=== PATIENT | female | born 1990 | race Caucasian/White ===

== ENCOUNTER 2018-09-29 16:01 | Emergency (ER) | payer MEDICAID ==
[~2018-09-29] VITALS: Ht 160 cm; Wt 63.5 kg
[2018-09-29 16:01] VITALS: BP 120/56
--- NOTE | 2018-09-29 16:05 | NUR ---
PT BIBA BLS, AMBULATED TO BED 7 AT 1605
--- NOTE | 2018-09-29 16:34 | NUR ---
PT PRESENTS TO THE ED WITH C/O WORSENING ANXIETY. PER PATIENT SHE HAS BEEN ANXIOUS X1WEEK AND HAS BEEN TAKING HYDROXYZINE BUT NO RELIEF. HAS HX OF DEPRESSION. NO S/S OF DISTRESS NOTED. BED LOWERED WITH SIDE RAILS UP. WILL CONTINUE TO MONITOR
[2018-09-29] MEDS ORDERED: LORazepam 1 MG TAB PO ONE (17:05)
[2018-09-29 17:29] LABS: BILIRUBIN,URINE NEGATIVE (NEGATIVE); BLOOD, URINE TRACE-I (NEGATIVE); COLOR,URINE YELLOW (YELLOW); LEUKOCYTE ESTERASE ,URINE 1+ (NEGATIVE); NITRITE, URINE NEGATIVE (NEGATIVE); PH,URINE 6.5 (5.0-9.0); UGLUCOSE NEGATIVE (NEGATIVE)
[2018-09-29 17:30] LABS: APPEARANCE,URINE HAZY (CLEAR)
[2018-09-29 17:33] LABS: WBC,URINE 0-5 /HPF (0-5)
[2018-09-29 17:34] LABS: YEAST,URINE Few /HPF (None Seen)
[2018-09-29 17:37] LABS: BARBITURATE, URINE NEG. ng/ml (NEG <=200); BENZODIAZEPINE, URINE NEG. ng/mL (NEG <=200); CANNABINOID, URINE NEG. ng/mL (NEG <=50); COCAINE, URINE NEG. ng/mL (NEG <=300); OPIATE, URINE NEG. ng/mL (NEG <=2000); PHENCYCLIDINE SCREEN,URINE NEG. ng/mL (NEG <=25)
[2018-09-29 18:13] VITALS: BP 114/75
--- NOTE | 2018-09-29 18:14 | NUR ---
Patient discharged with v/s stable. Written and verbal after care instructions given and explained. Patient verbalized understanding. Ambulatory with steady gait. All questions addressed prior to discharge. Advised to follow up with PMD.
== END 2018-09-29 18:14 | disposition home or self-care (01) ==
LOC: MED 16:01
DX: F41.9 Anxiety disorder, unspecified (principal); N30.90 Cystitis, unspecified without hematuria; B37.3 Candidiasis of vulva and vagina; Z88.1 Allergy status to other antibiotic agents; Z88.6 Allergy status to analgesic agent
CPT/HCPCS: 80305; 81001; 81025; 87086; 99284